=== PATIENT | male | born 1965 | race Caucasian/White ===

== ENCOUNTER 2019-11-19 14:50 | Emergency (ER) | payer SELFPAY ==
--- NOTE | 2019-11-19 16:42 | ED ---
Upper Extremity Pain - HPI Summary HPI Summary: Patient complains of injury to left thumb today when boiler fell on it. Tetanus status up-to-date. Denies any other pain, injury or symptoms. No anti- coag. - History of Current Complaint Chief Complaint: EDExtremityUpper Stated Complaint: CRUSHED FINGER/LAC PER PT Time Seen by Provider: 11/19/19 16:35 Hx Obtained From: Patient Mechanism Of Injury: Blunt Trauma Onset/Duration: Started Hours Ago Timing: Constant Severity Initially: Moderate Severity Currently: Moderate Pain Location: Finger Character: Aching, Throbbing Aggravating Factor(s): Nothing Alleviating Factor(s): Nothing Associated Signs & Symptoms: Positive: Swelling - Allergies/Home Medications Allergies/Adverse Reactions: Allergies Allergy/AdvReac Type Severity Reaction Status Date / Time atorvastatin [From Lipitor] Allergy Muscle Ache Verified 11/19/19 14:55 walnut Allergy Unknown Verified 11/19/19 14:55 Reaction Details LEGUMES Allergy Unknown Uncoded 11/19/19 14:55 Reaction Details Home Medications: Home Medications Hydrocodone/Acetaminophen [Hydrocodone Bitartrate/AC] 7.5 - 300 mg PO QID [History Confirmed 10/09/18] EPINEPHrine [Epipen 2-David] 0.3 mg IM ONCE PRN 09/06/18 [History Confirmed ] Ibuprofen TAB* [Advil TAB*] 400 - 600 mg PO Q6H PRN 09/06/18 [History Confirmed 10/09/18] LORazepam TAB(*) [Ativan 0.5 MG TAB (*)] 0.5 mg PO Q6H PRN 09/06/18 [History Confirmed 10/09/18] Mometasone Furoate 0.1 % TOPICAL TID PRN 09/06/18 [History Confirmed 10/09/18] Tizanidine HCl 4 mg PO TID PRN 09/06/18 [History Confirmed 10/09/18] clonazePAM TAB(*) [KlonoPIN TAB(*)] 0.5 mg PO BEDTIME 09/06/18 [History Confirmed 10/09/18] oxyCODONE SR TAB(*) [Oxycontin 10 mg (*)] 10 mg PO BID 09/06/18 [History Confirmed 10/09/18] Cephalexin CAP* [Keflex CAP*] 500 mg PO QID 7 Days #28 cap 11/19/19 [Rx] PMH/Surg Hx/FS Hx/Imm Hx Endocrine/Hematology History: Denies: Hx Diabetes Cardiovascular History: Reports: Hx Hypertension Denies: Hx Pacemaker/ICD History: Denies: Hx Renal Disease Sensory History: Denies: Hx Hearing Aid Opthamlomology History: Denies: Hx Legally Blind EENT History: Denies: Hx Deafness Neurological History: Denies: Hx Dementia Psychiatric History: Denies: Hx Panic Disorder - Surgical History Surgery Procedure, Year, and Place: Rt ANKLE - FX REPAIRED. ARTHROSCOPIC KNEES Infectious Disease History: No Infectious Disease History: Denies: Traveled Outside the [place] in Last 30 Days - Family History Known Family History: Positive: Non-Contributory - Social History Alcohol Use: Occasionally Substance Use Type: Reports: None Smoking Status (MU): Heavy Every Day Tobacco Smoker Review of Systems Constitutional: Negative Eyes: Negative ENT: Negative Cardiovascular: Negative Respiratory: Negative Gastrointestinal: Negative Genitourinary: Negative Musculoskeletal: Other Skin: Other Neurological/Mental Status: Negative Psychological: Normal All Other Systems Reviewed And Are Negative: Yes Physical Exam - Summary Physical Exam Summary: Amputation of 1 cm of distal left thumb including partial nail and partial nail bed. Remaining portion of nail and nailbed intact. Flexion and extension intact. No evidence of trauma to remaining portion of hand. Triage Information Reviewed: Yes Vital Signs On Initial Exam: Initial Vitals Temp Pulse Resp BP Pulse Ox 97.7 F 78 16 162/108 97 11/19/19 14:52 11/19/19 14:52 11/19/19 14:52 11/19/19 14:52 11/19/19 14:52 Vital Signs Reviewed: Yes Appearance: Positive: Well-Appearing Skin: Positive: Warm Head/Face: Positive: Normal Head/Face Inspection Eyes: Positive: Normal Neck: Positive: Supple Respiratory/Lung Sounds: Positive: Clear to Auscultation Cardiovascular: Positive: Normal Abdomen Description: Positive: Nontender Musculoskeletal: Positive: Normal Neurological: Positive: Normal Psychiatric: Positive: Normal AVPU Assessment: Alert - Talha Coma Scale Best Eye Response: 4 - Spontaneous Best Motor Response: 6 - Obeys Commands Best Verbal Response: 5 - Oriented Coma Scale Total: 15 Procedures - Sedation Patient Received Moderate/Deep Sedation with Procedure: No Diagnostics - Vital Signs Vital Signs Temp Pulse Resp BP Pulse Ox 11/19/19 14:52 97.7 F 78 16 162/108 97 - Laboratory Lab Statement: Any lab studies that have been ordered have been reviewed, and results considered in the medical decision making process. Course/Dx - Course Course Of Treatment: Patient complains of injury to left thumb today when boiler fell on it. Tetanus status up-to-date. Denies any other pain, injury or symptoms. No anti-coag. Vital signs within normal limits. X-ray left thumb negative for fracture. No indication for suturing. Wound clean and covered with antibiotic ointment and dressed with wet-to-dry dressing. - Diagnoses Provider Diagnoses: Crushing injury of thumb, left Discharge ED - Sign-Out/Discharge Documenting (check all that apply): Patient Departure - Discharge Plan Condition: Stable Disposition: HOME Prescriptions: Cephalexin CAP* [Keflex CAP*] 500 mg PO QID 7 Days #28 cap Patient Education Materials: Crush Injury (ED) Referrals: Negro Avilez MD [Primary Care Provider] - Michael Orr MD [Medical Doctor] - Additional Instructions: Change dressing every 4 hours. Apply antibiotic ointment to wound. Keep underlying gauze wet and then wrapped with dry dressing. Take antibiotics as directed. Alternate ibuprofen 600 mg with Tylenol 650 mg every 3 hours for pain and swelling. Keep wound clean. Follow-up with orthopedics Dr. Orr for further evaluation. Return to the ED for any new or worsening symptoms. - Billing Disposition and Condition Condition: STABLE Disposition: Home
[2019-11-19] MEDS ORDERED: Cephalexin CAP* 500 MG PO ONE (18:05)
[2019-11-19] MEDS ORDERED: Bacitracin OINTMENT* 0.5% 0.5 oz TUBE TOPICAL ONE (18:09)
[2019-11-19 18:31] VITALS: BP 196/98
== END 2019-11-19 18:29 | disposition home or self-care (01) ==
LOC: ED 14:50
DX: S67.02XA Crushing injury of left thumb, initial encounter (principal); W20.8XXA Other cause of strike by thrown, projected or falling object, initial encounter; Y92.9 Unspecified place or not applicable; I10 Essential (primary) hypertension; Z91.018 Allergy to other foods; Z88.8 Allergy status to other drugs, medicaments and biological substances; Z91.048 Other nonmedicinal substance allergy status; F17.200 Nicotine dependence, unspecified, uncomplicated
CPT/HCPCS: 99282; A9270-GY